=== PATIENT | female | born 1950 | race American Indian/Alaskan Native ===

== ENCOUNTER 2021-01-17 13:55 | Inpatient (IN) | payer MEDICARE ==
--- NOTE | 2021-01-17 14:02 | Emergency Department Report ---
ED General Adult HPI - General Stated complaint: CHEST PAINS/WEAKNESS Time Seen by Provider: 01/17/21 13:58 - History of Present Illness Initial comments: Patient presents by ambulance secondary to chest pain. She has been having chest pain for the last week. It is substernally located. It is when she coughs. When she does not cough, she does not have pain. She states she does not feel well but is not having pain with exertion. She has no pleuritic pain. The only time she has pain in the sternum is when she coughs. Cough has been dry. She has no fevers or chills. There is no recent travel or trauma. She has no vomiting or diarrhea. Patient has not taken anything for pain as of yet. Paramedics state that her EKG did not show anything acute. Patient came in today due to the pain. - Related Data Previous Rx's Medication Instructions Recorded Last Taken Type Benzonatate [Tessalon Perles] 100 mg PO Q8HR #30 capsule 01/17/21 Unknown Rx Allergies Allergy/AdvReac Type Severity Reaction Status Date / Time No Known Allergies Allergy Verified 01/17/21 14:35 ED Review of Systems ROS: Stated complaint: CHEST PAINS/WEAKNESS Other details as noted in HPI Comment: All other systems reviewed and negative Constitutional: denies: fever Eyes: denies: eye pain ENT: denies: throat pain Respiratory: no symptoms reported. denies: SOB with exertion Cardiovascular: as per HPI Endocrine: denies: unexplained weight loss Gastrointestinal: denies: vomiting Genitourinary: denies: dysuria Musculoskeletal: denies: back pain Skin: denies: rash Neurological: denies: headache Hematological/Lymphatic: denies: easy bruising ED Past Medical Hx - Past Medical History Hx Hypertension: Yes - Family History Family history: hypertension - Medications Home Medications: Home Medications Medication Instructions Recorded Confirmed Last Taken Type Benzonatate [Tessalon Perles] 100 mg PO Q8HR #30 capsule 01/17/21 Unknown Rx ED Physical Exam - General General appearance: alert, in no apparent distress - Head Head exam: Present: atraumatic, normocephalic, normal inspection - Eye Eye exam: Present: normal appearance, EOMI. Absent: scleral icterus - ENT ENT exam: Present: normal exam, normal orophraynx, mucous membranes moist - Neck Neck exam: Present: normal inspection, full ROM. Absent: meningismus - Respiratory Respiratory exam: Present: normal lung sounds bilaterally. Absent: respiratory distress - Cardiovascular Cardiovascular Exam: Present: regular rate, normal rhythm - GI/Abdominal GI/Abdominal exam: Present: soft. Absent: distended, tenderness, pulsatile mass - Extremities Exam Extremities exam: Present: normal capillary refill. Absent: tenderness, pedal edema - Back Exam Back exam: Absent: CVA tenderness (R), CVA tenderness (L) - Neurological Exam Neurological exam: Present: alert, oriented X3. Absent: motor sensory deficit - Psychiatric Psychiatric exam: Present: normal affect, normal mood - Skin Skin exam: Present: warm, dry ED Course Vital Signs 01/17/21 01/17/21 01/17/21 14:36 16:27 16:28 Temperature 98.3 F 98.0 F 97.6 F Pulse Rate 94 H 73 74 Respiratory 16 14 14 Rate Blood Pressure 129/63 Blood Pressure 111/56 135/73 [Left] O2 Sat by Pulse 100 100 100 Oximetry - Reevaluation(s) Reevaluation #1: 01/17/21 14:02 IV labs are ordered was seen in the hallway with EMS arrival. Reevaluation #2: 01/17/21 14:16 EKG was noted. There is no old EKG available. Reevaluation #3: 01/17/21 17:17 Labs of been reviewed. Second troponin has been ordered. IV fluids were ordered. Reevaluation #4: 01/17/21 18:43 Repeat troponin was noted and normal. At this time, patient was discharged. ED Medical Decision Making - Lab Data Result diagrams: 01/17/21 14:43 01/17/21 14:43 - EKG Data -: EKG Interpreted by Me EKG shows normal: sinus rhythm Rate: normal - EKG Data When compared to previous EKG there are: previous EKG unavailable Interpretation: other (Patient has a normal sinus rhythm with diffuse T wave inversions. There is good R wave progression. There is no ST elevation to suggest STEMI. No old EKG is available for comparison. QT corrected is prolonged at 651.) - Medical Decision Making Patient presented with chest pain with coughing. There was no radiographic evidence of pneumonia. She certainly did not have symptoms that would have been concerning for coronavirus. She was not short of breath, hypoxic, febrile, and had no productive cough. Patient did not have radiographic evidence suggestive of pneumonia or pneumothorax. She did not have a wide mediastinum or pulse deficit to suggest aortic dissection. She had a negative troponin x2. Based on that, I believe outpatient evaluation would be most appropriate. Clinically, her symptoms certainly do not sound to be cardiac in nature. Critical Care Time: No Critical care attestation.: If time is entered above; I have spent that time in minutes in the direct care of this critically ill patient, excluding procedure time. ED Disposition Clinical Impression: Substernal chest pain, Cough Disposition: HOME / SELF CARE / HOMELESS Is pt being admited?: No Does the pt Need Aspirin: No Condition: Stable Instructions: Nonspecific Chest Pain, Adult, Cough, Adult Additional Instructions: Continue home medication. Drink plenty water. Return for problems. Follow-up with your regular physician for recheck and further management. Prescriptions: Benzonatate [Tessalon Perles] 100 mg PO Q8HR #30 capsule
[2021-01-17] MEDS ORDERED: ASPIRIN 81 MG TAB CHEW PO ONE (15:00)
--- NOTE | 2021-01-17 15:17 | XRay Report ---
CHEST 2 VIEWS INDICATION / CLINICAL INFORMATION: pain. COMPARISON: None available. FINDINGS: SUPPORT DEVICES: None. HEART / MEDIASTINUM: No significant abnormality. LUNGS / PLEURA: No significant pulmonary or pleural abnormality. No pneumothorax. ADDITIONAL FINDINGS: No significant additional findings. IMPRESSION: 1. No acute findings. Signer Name: Efraín Bean MD Signed: 01/17/2021 3:12 PM Workstation Name: [id number]
[2021-01-17 15:22] LABS: Hematocrit 41.7 % (30.3-42.9); Hemoglobin 13.9 gm/dl (10.1-14.3); Mean Corpuscular HGB Conc 33 % (30-34); Mean Corpuscular Volume 104 fl (79-97); Platelet Count 166 K/mm3 (140-440); Red Blood Count 4.01 M/mm3 (3.65-5.03); Red Cell Distribution Width 12.8 % (13.2-15.2)
[2021-01-17 16:40] LABS: Alanine Aminotransferase 51 units/L (7-56); Albumin 4.3 g/dL (3.9-5); BUN/Creatinine Ratio 37; Blood Urea Nitrogen 67 mg/dL (7-17); Hemolysis Index 4
[2021-01-17] MEDS ORDERED: SODIUM CHLORIDE 0.9% 1000 ML 1,000 ML IV ONE ×2 (17:16→21:24)
--- NOTE | 2021-01-17 21:49 | Emergency Department Report ---
ED General Adult HPI - General Chief complaint: Chest Pain Stated complaint: CHEST PAINS/WEAKNESS Time Seen by Provider: 01/17/21 13:58 Source: patient Mode of arrival: Wheelchair Limitations: No Limitations - History of Present Illness Initial comments: Patient is a 70 years old female with history of hypertension. Patient presents by ambulance secondary to chest pain. She has been having chest pain for the last week. It is substernally located. It is when she coughs. When she does not cough, she does not have pain. She states she does not feel well but is not having pain with exertion. She has no pleuritic pain. The only time she has pain in the sternum is when she coughs. Cough has been dry. She has no fevers or chills. There is no recent travel or trauma. She has no vomiting or diarrhea. Patient has not taken anything for pain as of yet. Paramedics state that her EKG did not show anything acute. Patient came in today due to the pain. Patient was ready for discharge however patient blood pressure found to be 80/42. Patient is already received 1 L of normal saline. Patient still hypotensive. I ordered another liter of fluid. Lactic acid. Patient is complaining of epigastric abdominal pain described as sharp that radiates up and down. Severity scale (0 -10): 5 - Related Data Previous Rx's Medication Instructions Recorded Last Taken Type Benzonatate [Tessalon Perles] 100 mg PO Q8HR #30 capsule 01/17/21 Unknown Rx Allergies Allergy/AdvReac Type Severity Reaction Status Date / Time No Known Allergies Allergy Verified 01/17/21 14:35 ED Review of Systems ROS: Stated complaint: CHEST PAINS/WEAKNESS Other details as noted in HPI Constitutional: denies: fever Eyes: denies: eye pain ENT: denies: throat pain Respiratory: no symptoms reported. denies: SOB with exertion Cardiovascular: as per HPI Endocrine: denies: unexplained weight loss Gastrointestinal: denies: vomiting Genitourinary: denies: dysuria Musculoskeletal: denies: back pain Skin: denies: rash Neurological: denies: headache Hematological/Lymphatic: denies: easy bruising ED Past Medical Hx - Past Medical History Previous Medical History?: Yes Hx Hypertension: Yes - Surgical History Past Surgical History?: No - Social History Smoking Status: Never Smoker Substance Use Type: None - Medications Home Medications: Home Medications Medication Instructions Recorded Confirmed Last Taken Type Benzonatate [Tessalon Perles] 100 mg PO Q8HR #30 capsule 01/17/21 Unknown Rx ED Physical Exam - General Limitations: No Limitations General appearance: alert, in no apparent distress - Head Head exam: Present: atraumatic, normocephalic, normal inspection - Eye Eye exam: Present: normal appearance - ENT ENT exam: Present: mucous membranes dry - Neck Neck exam: Present: normal inspection, full ROM. Absent: tenderness, meningismus - Respiratory Respiratory exam: Present: normal lung sounds bilaterally - Cardiovascular Cardiovascular Exam: Present: regular rate, normal rhythm, normal heart sounds - GI/Abdominal GI/Abdominal exam: Present: soft, normal bowel sounds. Absent: distended, tenderness, guarding, rebound, rigid, organomegaly (Hospice was not needed), mass, bruit, pulsatile mass, hernia - Extremities Exam Extremities exam: Present: normal inspection, full ROM, normal capillary refill. Absent: calf tenderness - Back Exam Back exam: Present: normal inspection, full ROM. Absent: CVA tenderness (R), CVA tenderness (L) - Neurological Exam Neurological exam: Present: alert, oriented X3, CN II-XII intact - Psychiatric Psychiatric exam: Present: normal mood - Skin Skin exam: Present: warm, intact, normal color ED Course Vital Signs 01/17/21 01/17/21 01/17/21 14:36 16:27 16:28 Temperature 98.3 F 98.0 F 97.6 F Pulse Rate 94 H 73 74 Respiratory 16 14 14 Rate Blood Pressure 129/63 Blood Pressure 111/56 135/73 [Left] O2 Sat by Pulse 100 100 100 Oximetry 01/17/21 23:05 Temperature 98.0 F Pulse Rate 87 Respiratory 18 Rate Blood Pressure 84/57 Blood Pressure [Left] O2 Sat by Pulse 95 Oximetry ED Medical Decision Making - Lab Data Result diagrams: 01/17/21 14:43 01/17/21 14:43 - Radiology Data Radiology results: report reviewed - Medical Decision Making Patient is a 70 years old female with history of hypertension. Patient presents by ambulance secondary to chest pain. She has been having chest pain for the last week. It is substernally located. It is when she coughs. When she does not cough, she does not have pain. She states she does not feel well but is not having pain with exertion. She has no pleuritic pain. The only time she has pain in the sternum is when she coughs. Cough has been dry. She has no fevers or chills. There is no recent travel or trauma. She has no vomiting or diarrhea. Patient has not taken anything for pain as of yet. Paramedics state that her EKG did not show anything acute. Patient came in today due to the pain. Patient was ready for discharge however patient blood pressure found to be 80/42. Patient is already received 1 L of normal saline. Patient still hypotensive. I ordered another liter of fluid. Lactic acid. Patient is complaining of epigastric abdominal pain described as sharp that radiates up and down. Lactic acid is 3.6. Patient continued on normal saline. CT abdomen and pelvis showed small bowel obstruction with a transition point in the mid abdomen. Patient denied any previous surgical history. I discussed the patient with Dr. Richard, surgeon on-call. Dr. Richard advised to insert an NG tube in keep patient n.p.o. and will see the patient in the morning. I discussed the patient with Dr. Clements, he agreed to admit the patient to medical service for further management. Critical Care Time: Yes Critical care time in (mins) excluding proc time.: 30 Critical care attestation.: If time is entered above; I have spent that time in minutes in the direct care of this critically ill patient, excluding procedure time. ED Disposition Clinical Impression: Substernal chest pain, Cough, Small bowel obstruction, Bilateral pneumonia, Acute renal failure Disposition: 09 ADMITTED INPATIENT Is pt being admited?: Yes Condition: Stable
[2021-01-17 22:30] LABS: Bacteria,Urine 1+ /HPF (Negative); Bilirubin,Urine SM (Negative); Blood,Urine NEG (Negative); Color,Urine Amber (Yellow); Mucus,Urine FEW /HPF
--- NOTE | 2021-01-17 22:46 | Cat Scan Report ---
CT CHEST, ABDOMEN, AND PELVIS WITHOUT CONTRAST INDICATION / CLINICAL INFORMATION: Patient complains of abdominal pain. TECHNIQUE: Axial CT images were obtained through the chest, abdomen, and pelvis without contrast. All CT scans at this location are performed using CT dose reduction for ALARA by means of automated expo sure control. COMPARISON: None available. FINDINGS: HEART: No significant abnormality. CORONARY ARTERY CALCIFICATION: Moderate. THORACIC AORTA: Moderate atherosclerotic calcification without acute abnormality. MEDIASTINUM / JOSESITO: No significant abnormality. PLEURA: No pleural effusion. No pneumothorax. LUNGS: Mild patchy airspace disease in the central right middle lobe is nonspecific but likely infect ious/inflammatory. ADDITIONAL CHEST FINDINGS: Dilated fluid-filled esophagus. LIVER: No significant abnormality. GALLBLADDER: No significant abnormality. BILE DUCTS: No significant abnormality. PANCREAS: No significant abnormality. SPLEEN: No significant abnormality. ADRENALS: No significant abnormality. RIGHT KIDNEY / URETER: No significant abnormality. LEFT KIDNEY / URETER: No significant abnormality. STOMACH and SMALL BOWEL: The stomach is distended with fluid as is the small bowel. There are multipl e loops of dilated small bowel with likely transition point in the mid lower abdomen as seen on serie s 4 image 62. No pneumatosis or free air. COLON: No significant abnormality. APPENDIX: No significant abnormality. PERITONEUM: No free fluid. No free air. No fluid collection. LYMPH NODES: No significant adenopathy. AORTA / ARTERIES: Mild atherosclerotic calcification without acute abnormality. IVC / VEINS: No significant abnormality. URINARY BLADDER: No significant abnormality. REPRODUCTIVE ORGANS: No significant abnormality. ADDITIONAL FINDINGS: Fat-containing left inguinal hernia multilevel degenerative changes are present. No aggressive osseous lesion. SKELETAL SYSTEM: No significant abnormality. IMPRESSION: 1. Small bowel obstruction with likely transition point in the lower mid abdomen as above. No pneumat osis or free air identified. 2. Mild patchy airspace disease in the right middle lobe is nonspecific, possibly infectious/inflamma tory from aspiration-related changes from dilated fluid-filled esophagus. Signer Name: Cristobal Stokes MD Signed: 01/17/2021 10:42 PM Workstation Name: [id number]
[2021-01-17 22:48] LABS: Ictotest,Urine Negative (Negative)
[2021-01-17] MEDS ORDERED: PIPERACILLIN/TAZOBACTAM 3.375 3.375 GM/50 ML BAG IV ONE (23:08)
[2021-01-17] MEDS ORDERED: ACETAMINOPHEN 650 MG RECT SUPP PR PRN (23:12)
[2021-01-17] MEDS ORDERED: NALOXONE 0.4 MG/1 ML INJ IV PRN (23:12)
[2021-01-17] MEDS ORDERED: MORPHINE 2 MG/1 ML INJ IV PRN (23:12)
[2021-01-17] MEDS ORDERED: ONDANSETRON 4 MG/2 ML INJ IV PRN (23:12)
[2021-01-17] MEDS ORDERED: MORPHINE 4 MG/1 ML INJ IV PRN (23:12)
[2021-01-17] MEDS ORDERED: SODIUM CHLORIDE 0.45% 1000 ML 1,000 ML IV SCH (23:45)
--- NOTE | 2021-01-18 00:09 | History and Physical Report ---
History of Present Illness Date of examination: 01/17/21 Date of admission: 01/17/2021 Chief complaint: Chest pain, and abdominal pain History of present illness: 70-year-old female with history of hypertension who presents [facility] ED via ambulance with complaints of chest pain. Patient reports intermittent chest pain when coughing x1 week. Denies chest pain when not coughing. Describes her cough as dry and nonproductive. Describes her chest pain as aching and rates it 4/10. While in the ED being worked up for chest pain patient began to complain of 8/10 sharp epigastric pain with radiation to upper and lower abdomen and was noted to be hypotensive with BP of 80/42. Her abdominal pain came on sudden and was relieved with pain meds. Despite receiving 1 L bolus of normal saline, patient remained hypotensive, and was started on maintenance fluids. Imaging revealed small bowel obstruction and pneumonia. Patient will be admitted for further evaluation and treatment. Endorses: Mild dysuria Denies: shortness of breath, palpitations, fever, chills, nausea, vomiting, diarrhea, constipation, headache, hematuria, melena, hematochezia, or recent sick contacts Past History Past Medical History: hypertension, other (Mitral valve prolapse) Past Surgical History: No surgical history Social history: lives with family (Sister and niece), full code. denies: smoki ng, alcohol abuse, prescription drug abuse, IV drug use Family history: no significant family history Medications and Allergies Allergies Allergy/AdvReac Type Severity Reaction Status Date / Time No Known Allergies Allergy Verified 01/17/21 14:35 Home Medications Medication Instructions Recorded Confirmed Last Taken Type Benzonatate [Tessalon Perles] 100 mg PO Q8HR #30 capsule 01/17/21 Unknown Rx Active Meds: Active Medications Acetaminophen (Acetaminophen 650 Mg Rect Supp) 650 mg AL Q4H PRN PRN Reason: Pain MILD(1-3)/Fever >100.5/NATION Heparin Sodium (Porcine) (Heparin 5,000 Unit/1 Ml Vial) 5,000 unit SUB-Q Q12HR ORI Piperacillin Sod/Tazobactam Sod (Zosyn/Ns 4.5gm/100ml) 4.5 gm in 100 mls @ 200 mls/hr IV Q8H ORI; Protocol Sodium Chloride (Nacl 0.45% 1000 Ml) 1,000 mls @ 75 mls/hr IV DIRECT ORI Stop: 01/18/21 12:00 Morphine Sulfate (Morphine 2 Mg/1 Ml Inj) 2 mg IV Q4H PRN PRN Reason: Pain, Moderate (4-6) Morphine Sulfate (Morphine 4 Mg/1 Ml Inj) 4 mg IV Q4H PRN PRN Reason: Pain , Severe (7-10) Naloxone HCl (Naloxone 0.4 Mg/1 Ml Inj) 0.1 mg IV Q2MIN PRN PRN Reason: Res Rate </= 8 or 02 SAT < 92% Ondansetron HCl (Ondansetron 4 Mg/2 Ml Inj) 4 mg IV Q6H PRN PRN Reason: Nausea And Vomiting Pantoprazole Sodium (Pantoprazole 40 Mg Inj) 40 mg IV QDAY ORI Sodium Chloride (Sodium Chloride 0.9% 10 Ml Flush Syringe) 10 ml IV BID ORI Sodium Chloride (Sodium Chloride 0.9% 10 Ml Flush Syringe) 10 ml IV PRN PRN PRN Reason: LINE FLUSH Review of Systems All systems: negative (As noted in HPI) Exam - Physical Exam Narrative exam: Physical exam General appearance: Present: No acute distress, alert and oriented 3, older adult female - EENT Eyes: Present: PERRL, EOM intact ENT: hearing intact, normal dentition - Neck Neck: Present: supple, normal ROM - Respiratory Respiratory effort: Non-labored Respiratory: Clear throughout - Cardiovascular Heart rate: 94 (bpm) Rhythm: Sinus Heart Sounds: Present: S1 & S2. Absent: rub, click - Extremities Extremities: no ischemia, pulses intact, - Peripheral Assessment Peripheral Pulses: within normal limits - Abdominal General gastrointestinal: Distended, mild tenderness to epigastric region, normal bowel sounds - Integumentary Integumentary: Present: warm, dry - Musculoskeletal Musculoskeletal: Able to move all extremities -Neurological Neurological: CN II-XII intact - Psychiatric Psychiatric: cooperative - Constitutional Vitals: Temp Pulse Resp BP Pulse Ox 98.0 F 87 18 84/57 95 01/17/21 23:05 01/17/21 23:05 01/17/21 23:05 01/17/21 23:05 01/17/21 23:05 HEART Score - HEART Score Troponin: Troponin T 0.010 ng/mL (0.00-0.029) 01/17/21 17:50 Results - Labs CBC & Chem 7: 09/14/21 14:43 01/17/21 14:43 Labs: Laboratory Last Values WBC 7.2 K/mm3 (4.5-11.0) 01/17/21 14:43 RBC 4.01 M/mm3 (3.65-5.03) 01/17/21 14:43 Hgb 13.9 gm/dl (10.1-14.3) 01/17/21 14:43 Hct 41.7 % (30.3-42.9) 01/17/21 14:43 MCV 104 fl (79-97) H 01/17/21 14:43 MCH 35 pg (28-32) H 01/17/21 14:43 MCHC 33 % (30-34) 01/17/21 14:43 RDW 12.8 % (13.2-15.2) L 01/17/21 14:43 Plt Count 166 K/mm3 (140-440) 01/17/21 14:43 Sodium 137 mmol/L (137-145) 01/17/21 14:43 Potassium 3.8 mmol/L (3.6-5.0) 01/17/21 14:43 Chloride 95.4 mmol/L (98-107) L 01/17/21 14:43 Carbon Dioxide 26 mmol/L (22-30) 01/17/21 14:43 Anion Gap 19 mmol/L 01/17/21 14:43 BUN 67 mg/dL (7-17) H 01/17/21 14:43 Creatinine 1.8 mg/dL (0.6-1.2) H 01/17/21 14:43 Estimated GFR 28 ml/min 01/17/21 14:43 BUN/Creatinine Ratio 37 % 01/17/21 14:43 Glucose 158 mg/dL (65-100) H 01/17/21 14:43 Lactic Acid 3.60 mmol/L (0.7-2.0) H* 01/17/21 21:57 Calcium 10.0 mg/dL (8.4-10.2) 01/17/21 14:43 Total Bilirubin 0.90 mg/dL (0.1-1.2) 01/17/21 14:43 AST 35 units/L (5-40) 01/17/21 14:43 ALT 51 units/L (7-56) 01/17/21 14:43 Alkaline Phosphatase 59 units/L (35-129) 01/17/21 14:43 Troponin T 0.010 ng/mL (0.00-0.029) 01/17/21 17:50 Total Protein 8.5 g/dL (6.3-8.2) H 01/17/21 14:43 Albumin 4.3 g/dL (3.9-5) 01/17/21 14:43 Albumin/Globulin Ratio 1.0 % 01/17/21 14:43 Urine Color Shara (Yellow) 01/17/21 Unknown Urine Turbidity Cloudy (Clear) 01/17/21 Unknown Urine pH 5.0 (5.0-7.0) 01/17/21 Unknown Ur Specific Ajo 1.020 (1.003-1.030) 01/17/21 Unknown Urine Protein 30 mg/dl mg/dL (Negative) 01/17/21 Unknown Urine Glucose (UA) Neg mg/dL (Negative) 01/17/21 Unknown Urine Ketones Neg mg/dL (Negative) 01/17/21 Unknown Urine Blood Neg (Negative) 01/17/21 Unknown Urine Nitrite Neg (Negative) 01/17/21 Unknown Urine Bilirubin Sm (Negative) 01/17/21 Unknown Urine Ictotest Negative (Negative) 01/17/21 Unknown Urine Urobilinogen 2.0 mg/dL (<2.0) 01/17/21 Unknown Ur Leukocyte Esterase Mod (Negative) 01/17/21 Unknown Urine WBC (Auto) 19.0 /HPF (0.0-6.0) H 01/17/21 Unknown Urine RBC (Auto) 5.0 /HPF (0.0-6.0) 01/17/21 Unknown U Epithel Cells (Auto) 22.0 /HPF (0-13.0) H 01/17/21 Unknown Urine Bacteria (Auto) 1+ /HPF (Negative) 01/17/21 Unknown Urine Mucus Few /HPF 01/17/21 Unknown Urine Yeast (Budding) Few /HPF 01/17/21 Unknown - Imaging and Cardiology Imaging and Cardiology: CXR: FINDINGS: SUPPORT DEVICES: None. HEART / MEDIASTINUM: No significant abnormality. LUNGS / PLEURA: No significant pulmonary or pleural abnormality. No pneumothorax. ADDITIONAL FINDINGS: No significant additional findings. IMPRESSION: 1. No acute findings. CT Chest & CT Abd/Pelvis : FINDINGS: HEART: No significant abnormality. CORONARY ARTERY CALCIFICATION: Moderate. THORACIC AORTA: Moderate atherosclerotic calcification without acute abnormality. MEDIASTINUM / JOSESITO: No significant abnormality. PLEURA: No pleural effusion. No pneumothorax. LUNGS: Mild patchy airspace disease in the central right middle lobe is nonspecific but likely infectious/inflammatory. ADDITIONAL CHEST FINDINGS: Dilated fluid-filled esophagus. LIVER: No significant abnormality. GALLBLADDER: No significant abnormality. BILE DUCTS: No significant abnormality. PANCREAS: No significant abnormality. SPLEEN: No significant abnormality. ADRENALS: No significant abnormality. RIGHT KIDNEY / URETER: No significant abnormality. LEFT KIDNEY / URETER: No significant abnormality. STOMACH and SMALL BOWEL: The stomach is distended with fluid as is the small bow el. There are multiple loops of dilated small bowel with likely transition point in the mid lower abdomen as seen on series 4 image 62. No pneumatosis or free air. COLON: No significant abnormality. APPENDIX: No significant abnormality. PERITONEUM: No free fluid. No free air. No fluid collection. LYMPH NODES: No significant adenopathy. AORTA / ARTERIES: Mild atherosclerotic calcification without acute abnormality. IVC / VEINS: No significant abnormality. URINARY BLADDER: No significant abnormality. REPRODUCTIVE ORGANS: No significant abnormality. ADDITIONAL FINDINGS: Fat-containing left inguinal hernia multilevel degenerative changes are present. No aggressive osseous lesion. SKELETAL SYSTEM: No significant abnormality. IMPRESSION: 1. Small bowel obstruction with likely transition point in the lower mid abdomen as above. No pneumatosis or free air identified. 2. Mild patchy airspace disease in the right middle lobe is nonspecific, p ossibly infectious/inflammatory from aspiration-related changes from dilated fluid-filled esophagus. Assessment and Plan Assessment and plan: Small bowel obstruction -CT abdomen pelvis revealed small bowel obstruction with likely transition point in the lower mid abdomen -N.p.o. -NG tube to LIS -On IV ABX -Dr. Richard (general surgery) consulted with plans to see in a.m. Acute abdominal pain -Complains of sharp 8/10 epigastric pain -Likely due to #1 -Pain management -Supportive care Atypical chest pain -Complains of substernal chest pain when coughing -EKG negative for acute ischemic abnormalities -Troponin negative x2, will trend -?? GERD -?? d/t PNA -On continuous remote telemetry monitoring CHRIST -BUN/Cr on 67/1.8 on admission -Hydrate with IVF -Avoid nephrotoxic agents -Renal dose all meds -Monitor renal function Urinary tract infection -UA positive for UTI -urine wbc 19, moderate leukocyte -Urine culture pending -on IV Abx Pneumonia -CXR negative -CT chest shows nonspecific Mild patchy airspace disease in the right middle lobe -Blood Cultures pending -Start on IV Abx Lactic acidosis -Lactic acid of 3.5 on admission -on IV Abx -on IVF -Continue to monitor Hypotension - History of hypertension -Responsive to fluid resuscitation -We will hold off on antihypertensive for now, resume when appropriate -Monitor BP DVT and GI PPX - On protonix and heparin Advance Directives: No VTE prophylaxis?: Chemical, Mechanical Plan of care discussed with patient/family: Yes
[2021-01-18] MEDS: PIPERACIL/TAZOBACTA 4.5/NS 100 4.5 GM/100 ML VIAL IV SCH ×3 (02:00→22:28)
--- NOTE | 2021-01-18 09:25 | Consultation ---
History of Present Illness Consult date: 01/18/21 Consult reason: chest pain History of present illness: This is a 70-year old women with a history of hypertension. No cardiac history. In 2018, a lexiscan thallium test showed a normal perfusion scan. Normal left ventricular systolic function, ejection fraction 55-60% by echocardiogram. She was brought to this hospital with complaints of chest pain. Chest pain is described as intermittent for several days associated with cough. Denies short ness of breath and denies palpitations. Initial labs showed acute renal failure, creatinine of 1.8. Serial troponin measurements were negative. COVID serology test result is pending. Chest x-ray done was negative, however, a chest CT scan showed evidence of small bowel obstruction. 12 lead ECG is sinus rhythm, no acute ischemic changes. Past History Past Medical History: hypertension Past Surgical History: No surgical history Social history: lives with family (Sister and niece), full code. denies: smok ing, alcohol abuse, prescription drug abuse, IV drug use Family history: no significant family history Medications and Allergies Allergies Allergy/AdvReac Type Severity Reaction Status Date / Time No Known Allergies Allergy Verified 01/17/21 14:35 Home Medications Medication Instructions Recorded Confirmed Last Taken Type Benzonatate [Tessalon Perles] 100 mg PO Q8HR #30 capsule 01/17/21 Unknown Rx Active Meds: Active Medications Acetaminophen (Acetaminophen 650 Mg Rect Supp) 650 mg PA Q4H PRN PRN Reason: Pain MILD(1-3)/Fever >100.5/NATION Heparin Sodium (Porcine) (Heparin 5,000 Unit/1 Ml Vial) 5,000 unit SUB-Q Q12HR ORI Piperacillin Sod/Tazobactam Sod (Zosyn/Ns 4.5gm/100ml) 4.5 gm in 100 mls @ 200 mls/hr IV Q8H ORI; Protocol Last Infusion: 01/18/21 07:37 Dose: Infused Documented by: Sodium Chloride (Nacl 0.45% 1000 Ml) 1,000 mls @ 75 mls/hr IV DIRECT ORI Stop: 01/18/21 12:00 Morphine Sulfate (Morphine 2 Mg/1 Ml Inj) 2 mg IV Q4H PRN PRN Reason: Pain, Moderate (4-6) Morphine Sulfate (Morphine 4 Mg/1 Ml Inj) 4 mg IV Q4H PRN PRN Reason: Pain , Severe (7-10) Naloxone HCl (Naloxone 0.4 Mg/1 Ml Inj) 0.1 mg IV Q2MIN PRN PRN Reason: Res Rate </= 8 or 02 SAT < 92% Ondansetron HCl (Ondansetron 4 Mg/2 Ml Inj) 4 mg IV Q6H PRN PRN Reason: Nausea And Vomiting Pantoprazole Sodium (Pantoprazole 40 Mg Inj) 40 mg IV QDAY ORI Sodium Chloride (Sodium Chloride 0.9% 10 Ml Flush Syringe) 10 ml IV BID ORI Sodium Chloride (Sodium Chloride 0.9% 10 Ml Flush Syringe) 10 ml IV PRN PRN PRN Reason: LINE FLUSH Review of Systems Cardiovascular: chest pain, no palpitations, no edema, no lightheadedness, no shortness of breath Respiratory: cough Gastrointestinal: nausea Physical Examination Vital Signs Temp Pulse Resp BP Pulse Ox 98.3 F 94 H 16 111/56 100 01/17/21 14:36 01/17/21 14:36 01/17/21 14:36 01/17/21 14:36 01/17/21 14:36 Narrative exam: Deferred due to isolation protocol. General appearance: no acute distress Cardiac: Positive: Reg Rate and Rhythm Results 01/17/21 14:43 01/17/21 14:43 Cardiac Enzymes 01/17/21 Range/Units 14:43 AST 35 (5-40) units/L CBC 01/17/21 Range/Units 14:43 WBC 7.2 (4.5-11.0) K/mm3 RBC 4.01 (3.65-5.03) M/mm3 Hgb 13.9 (10.1-14.3) gm/dl Hct 41.7 (30.3-42.9) % Plt Count 166 (140-440) K/mm3 Comprehensive Metabolic Panel 01/17/21 Range/Units 14:43 Sodium 137 (137-145) mmol/L Potassium 3.8 (3.6-5.0) mmol/L Chloride 95.4 L (98-107) mmol/L Carbon Dioxide 26 (22-30) mmol/L BUN 67 H (7-17) mg/dL Creatinine 1.8 H (0.6-1.2) mg/dL Glucose 158 H (65-100) mg/dL Calcium 10.0 (8.4-10.2) mg/dL AST 35 (5-40) units/L ALT 51 (7-56) units/L Alkaline Phosphatase 59 (35-129) units/L Total Protein 8.5 H (6.3-8.2) g/dL Albumin 4.3 (3.9-5) g/dL Assessment and Plan Atypical chest pain associated with cough COVID serology result is pending 2018 Lexiscan: normal perfusion 2018 Echo: normal LVEF 55-60% Small bowel obstruction Hypertension
--- NOTE | 2021-01-18 09:54 | Consultation ---
History of Present Illness Consult date: 01/18/21 Reason for consult: abdominal pain - History of present illness History of present illness: 70 year old female presented to ER yesterday with chest pain and abdominal pain. She says the abdominal pain started while in the ED with nausea and no vomiting. She says the pain is about 6/10 and cannot recall the last time she had a bowel movement or passed flatus. She had a CT scan that showed dilated stomach and small bowel with a transition point in the mid pelvis c/w SBO. She had an NGT placed in ED but does not says she feels much better. Past History Past Medical History: hypertension Past Surgical History: Social history: lives with family (Sister and niece), full code. denies: smoking, alcohol abuse, prescription drug abuse, IV drug use Family history: no significant family history Medications and Allergies Allergies Allergy/AdvReac Type Severity Reaction Status Date / Time No Known Allergies Allergy Verified 01/17/21 14:35 Home Medications Medication Instructions Recorded Confirmed Last Taken Type Benzonatate [Tessalon Perles] 100 mg PO Q8HR #30 capsule 01/17/21 Unknown Rx Active Meds: Active Medications Acetaminophen (Acetaminophen 650 Mg Rect Supp) 650 mg MT Q4H PRN PRN Reason: Pain MILD(1-3)/Fever >100.5/NATION Heparin Sodium (Porcine) (Heparin 5,000 Unit/1 Ml Vial) 5,000 unit SUB-Q Q12HR ORI Piperacillin Sod/Tazobactam Sod (Zosyn/Ns 4.5gm/100ml) 4.5 gm in 100 mls @ 200 mls/hr IV Q8H ORI; Protocol Last Infusion: 01/18/21 07:37 Dose: Infused Documented by: Sodium Chloride (Nacl 0.45% 1000 Ml) 1,000 mls @ 75 mls/hr IV DIRECT ORI Stop: 01/18/21 12:00 Morphine Sulfate (Morphine 2 Mg/1 Ml Inj) 2 mg IV Q4H PRN PRN Reason: Pain, Moderate (4-6) Morphine Sulfate (Morphine 4 Mg/1 Ml Inj) 4 mg IV Q4H PRN PRN Reason: Pain , Severe (7-10) Naloxone HCl (Naloxone 0.4 Mg/1 Ml Inj) 0.1 mg IV Q2MIN PRN PRN Reason: Res Rate </= 8 or 02 SAT < 92% Ondansetron HCl (Ondansetron 4 Mg/2 Ml Inj) 4 mg IV Q6H PRN PRN Reason: Nausea And Vomiting Pantoprazole Sodium (Pantoprazole 40 Mg Inj) 40 mg IV QDAY ORI Sodium Chloride (Sodium Chloride 0.9% 10 Ml Flush Syringe) 10 ml IV BID ORI Sodium Chloride (Sodium Chloride 0.9% 10 Ml Flush Syringe) 10 ml IV PRN PRN PRN Reason: LINE FLUSH Review of Systems All systems: negative - Constitutional poor appetite - Cardiovascular no chest pain - Respiratory no cough - Gastrointestinal abdominal pain, nausea Exam Vital Signs Temp Pulse Resp BP Pulse Ox 98.3 F 94 H 16 111/56 100 01/17/21 14:36 01/17/21 14:36 01/17/21 14:36 01/17/21 14:36 01/17/21 14:36 - General physical appearance Positive: well developed, no distress, moderate pain - Respiratory Positive: normal expansion, normal respiratory effort - Cardiovascular Heart Sounds: Present: S1 & S2 - Extremities Extremities: no ischemia - Abdomen Abdomen: Present: soft, distended, other (generalized tenderness to deep palpation, NGT with dark yellow drainage). Absent: guarding, rigid - Neurologic Neurologic: alert and oriented to time, place and person, CN II-XII intact - Psychiatric Psychiatric: appropriate mood/affect Results - Labs 01/17/21 14:43 01/17/21 14:43 Abnormal lab results 01/17/21 01/17/21 01/17/21 Range/Units 14:43 14:43 21:57 MCV 104 H (79-97) fl MCH 35 H (28-32) pg RDW 12.8 L (13.2-15.2) % Chloride 95.4 L (98-107) mmol/L BUN 67 H (7-17) mg/dL Creatinine 1.8 H (0.6-1.2) mg/dL Glucose 158 H (65-100) mg/dL Lactic Acid 3.60 H* (0.7-2.0) mmol/L Total Protein 8.5 H (6.3-8.2) g/dL Urine WBC (Auto) (0.0-6.0) /HPF U Epithel Cells (Auto) (0-13.0) /HPF 01/17/21 01/17/21 Range/Units 23:47 Unknown MCV (79-97) fl MCH (28-32) pg RDW (13.2-15.2) % Chloride (98-107) mmol/L BUN (7-17) mg/dL Creatinine (0.6-1.2) mg/dL Glucose (65-100) mg/dL Lactic Acid 2.40 H* (0.7-2.0) mmol/L Total Protein (6.3-8.2) g/dL Urine WBC (Auto) 19.0 H (0.0-6.0) /HPF U Epithel Cells (Auto) 22.0 H (0-13.0) /HPF Diabetes panel 01/17/21 Range/Units 14:43 Sodium 137 (137-145) mmol/L Potassium 3.8 (3.6-5.0) mmol/L Chloride 95.4 L (98-107) mmol/L Carbon Dioxide 26 (22-30) mmol/L BUN 67 H (7-17) mg/dL Creatinine 1.8 H (0.6-1.2) mg/dL Glucose 158 H (65-100) mg/dL Calcium 10.0 (8.4-10.2) mg/dL AST 35 (5-40) units/L ALT 51 (7-56) units/L Alkaline Phosphatase 59 (35-129) units/L Total Protein 8.5 H (6.3-8.2) g/dL Albumin 4.3 (3.9-5) g/dL Calcium panel 01/17/21 Range/Units 14:43 Calcium 10.0 (8.4-10.2) mg/dL Albumin 4.3 (3.9-5) g/dL Pituitary panel 01/17/21 Range/Units 14:43 Sodium 137 (137-145) mmol/L Potassium 3.8 (3.6-5.0) mmol/L Chloride 95.4 L (98-107) mmol/L Carbon Dioxide 26 (22-30) mmol/L BUN 67 H (7-17) mg/dL Creatinine 1.8 H (0.6-1.2) mg/dL Glucose 158 H (65-100) mg/dL Calcium 10.0 (8.4-10.2) mg/dL Adrenal panel 01/17/21 Range/Units 14:43 Sodium 137 (137-145) mmol/L Potassium 3.8 (3.6-5.0) mmol/L Chloride 95.4 L (98-107) mmol/L Carbon Dioxide 26 (22-30) mmol/L BUN 67 H (7-17) mg/dL Creatinine 1.8 H (0.6-1.2) mg/dL Glucose 158 H (65-100) mg/dL Calcium 10.0 (8.4-10.2) mg/dL Total Bilirubin 0.90 (0.1-1.2) mg/dL AST 35 (5-40) units/L ALT 51 (7-56) units/L Alkaline Phosphatase 59 (35-129) units/L Total Protein 8.5 H (6.3-8.2) g/dL Albumin 4.3 (3.9-5) g/dL - Imaging CT scan - abdomen: report reviewed, image reviewed CT scan - pelvis: report reviewed, image reviewed Assessment and Plan 70 year old female with small bowel obstruction. Most likely etiology scar tissue from . Patient is afebrile and stable. Recommend n.p.o., IV resuscitation, and NG tube decompression. If no improvement and continued high NG tube output patient may benefit from diagnostic laparoscopy. Will reevaluate patient this afternoon with possible surgery plan for today.
[2021-01-18] MEDS: HEPARIN 5,000 UNIT/1 ML VIAL SUB-Q SCH ×2 (10:42→22:28)
[2021-01-18] MEDS: PANTOPRAZOLE 40 MG INJ IV SCH (10:42)
--- NOTE | 2021-01-18 12:15 | Progress Note ---
Assessment and Plan Assessment and plan: 70-year-old female with history of hypertension who presents [facility] ED via ambulance with complaints of chest pain. Patient reports intermittent chest pain when coughing x1 week. Denies chest pain when not coughing. Describes her cough as dry and nonproductive. Describes her chest pain as aching and rates it 4/10. While in the ED being worked up for chest pain patient began to complain of 8/10 sharp epigastric pain with radiation to upper and lower abdomen and was noted to be hypotensive with BP of 80/42. Her abdominal pain came on sudden and was relieved with pain meds. Despite receiving 1 L bolus of normal saline, patient remained hypotensive, and was started on maintenance fluids. Imaging revealed small bowel obstruction and pneumonia. Patient will be admitted for further evaluation and treatment. CT abdomen and pelvis 1. Small bowel obstruction with likely transition point in the lower mid abdomen as above. No pneumatosis or free air identified. 2. Mild patchy airspace disease in the right middle lobe is nonspecific, possibly infectious/inflammatory from aspiration-related changes from dilated fluid-filled esophagus. Small bowel obstruction -CT abdomen pelvis revealed small bowel obstruction with likely transition point in the lower mid abdomen -N.p.o. -NG tube to LIS -On IV ABX -Dr. Richard (general surgery) consulted with plans to see in a.m. Acute abdominal pain -Complains of sharp 8/10 epigastric pain -Likely due to #1 -Pain management -Supportive care Atypical chest pain -Complains of substernal chest pain when coughing -EKG negative for acute ischemic abnormalities -Troponin negative x2, will trend -?? GERD -?? d/t PNA -On continuous remote telemetry monitoring CHRIST -BUN/Cr on 67/1.8 on admission -Hydrate with IVF -Avoid nephrotoxic agents -Renal dose all meds -Monitor renal function Urinary tract infection -UA positive for UTI -urine wbc 19, moderate leukocyte -Urine culture pending -on IV Abx Pneumonia -CXR negative -CT chest shows nonspecific Mild patchy airspace disease in the right middle lobe -Blood Cultures pending -Start on IV Abx Lactic acidosis -Lactic acid of 3.5 on admission -on IV Abx -on IVF -Continue to monitor Hypotension - History of hypertension -Responsive to fluid resuscitation -We will hold off on antihypertensive for now, resume when appropriate -Monitor BP DVT and GI PPX - On protonix and heparin Advance Directives: No VTE prophylaxis?: Chemical, Mechanical Plan of care discussed with patient/family: Yes 01/18: Continue supportive care. Surgery evaluating, continue NGT, Will have Cardiology evaluate as patient had chest pain prior to presentation. She reports that she has a hx of Regular BM, although that she has experienced constipation about 3 months earlier. History Interval history: Patient seen and examined, resting comfortable, NGT is in place. Reports improvement in abdominal pain. Hospitalist Physical - Physical exam Narrative exam: VITAL SIGNS: Reviewed. GENERAL: The patient appears normally developed, NGT, Vital signs as documented. HEAD: No signs of head trauma. EYES: Pupils are equal. Extraocular motions intact. EARS: Hearing grossly intact. MOUTH: Oropharynx is normal. NECK: No adenopathy, no JVD. CHEST: Chest with clear breath sounds bilaterally. No wheezes, rales, or rhonchi. CARDIAC: Regular rate and rhythm. S1 and S2, without murmurs, gallops, or rubs. VASCULAR: No Edema. Peripheral pulses normal and equal in all extremities. ABDOMEN: Soft, non tender and non distended. No rebound or guarding, and no masses palpated. Bowel Sounds normal. MUSCULOSKELETAL: Good range of motion of all major joints. Extremities without clubbing, cyanosis or edema. NEUROLOGIC EXAM: Alert and oriented x 3 No focal sensory or strength deficits. Speech normal. Follows commands. PSYCHIATRIC: Mood normal. SKIN: detail exam as documented in skin assessment - Constitutional Vitals: Temp Pulse Resp BP Pulse Ox 98.0 F 87 18 84/57 96 01/17/21 23:05 01/17/21 23:05 01/17/21 23:05 01/17/21 23:05 01/18/21 01:37 General appearance: Present: no acute distress HEART Score - HEART Score Troponin: Troponin T 0.014 ng/mL (0.00-0.029) 01/18/21 06:27 Results - Labs CBC & Chem 7: 01/17/21 14:43 01/17/21 14:43 Labs: Laboratory Last Values WBC 7.2 K/mm3 (4.5-11.0) 01/17/21 14:43 RBC 4.01 M/mm3 (3.65-5.03) 01/17/21 14:43 Hgb 13.9 gm/dl (10.1-14.3) 01/17/21 14:43 Hct 41.7 % (30.3-42.9) 01/17/21 14:43 MCV 104 fl (79-97) H 01/17/21 14:43 MCH 35 pg (28-32) H 01/17/21 14:43 MCHC 33 % (30-34) 01/17/21 14:43 RDW 12.8 % (13.2-15.2) L 01/17/21 14:43 Plt Count 166 K/mm3 (140-440) 01/17/21 14:43 Sodium 137 mmol/L (137-145) 01/17/21 14:43 Potassium 3.8 mmol/L (3.6-5.0) 01/17/21 14:43 Chloride 95.4 mmol/L (98-107) L 01/17/21 14:43 Carbon Dioxide 26 mmol/L (22-30) 01/17/21 14:43 Anion Gap 19 mmol/L 01/17/21 14:43 BUN 67 mg/dL (7-17) H 01/17/21 14:43 Creatinine 1.8 mg/dL (0.6-1.2) H 01/17/21 14:43 Estimated GFR 28 ml/min 01/17/21 14:43 BUN/Creatinine Ratio 37 % 01/17/21 14:43 Glucose 158 mg/dL (65-100) H 01/17/21 14:43 Lactic Acid 1.80 mmol/L (0.7-2.0) 01/18/21 06:27 Calcium 10.0 mg/dL (8.4-10.2) 01/17/21 14:43 Total Bilirubin 0.90 mg/dL (0.1-1.2) 01/17/21 14:43 AST 35 units/L (5-40) 01/17/21 14:43 ALT 51 units/L (7-56) 01/17/21 14:43 Alkaline Phosphatase 59 units/L (35-129) 01/17/21 14:43 Troponin T 0.014 ng/mL (0.00-0.029) 01/18/21 06:27 Total Protein 8.5 g/dL (6.3-8.2) H 01/17/21 14:43 Albumin 4.3 g/dL (3.9-5) 01/17/21 14:43 Albumin/Globulin Ratio 1.0 % 01/17/21 14:43 Urine Color Shara (Yellow) 01/17/21 Unknown Urine Turbidity Cloudy (Clear) 01/17/21 Unknown Urine pH 5.0 (5.0-7.0) 01/17/21 Unknown Ur Specific Eaton 1.020 (1.003-1.030) 01/17/21 Unknown Urine Protein 30 mg/dl mg/dL (Negative) 01/17/21 Unknown Urine Glucose (UA) Neg mg/dL (Negative) 01/17/21 Unknown Urine Ketones Neg mg/dL (Negative) 01/17/21 Unknown Urine Blood Neg (Negative) 01/17/21 Unknown Urine Nitrite Neg (Negative) 01/17/21 Unknown Urine Bilirubin Sm (Negative) 01/17/21 Unknown Urine Ictotest Negative (Negative) 01/17/21 Unknown Urine Urobilinogen 2.0 mg/dL (<2.0) 01/17/21 Unknown Ur Leukocyte Esterase Mod (Negative) 01/17/21 Unknown Urine WBC (Auto) 19.0 /HPF (0.0-6.0) H 01/17/21 Unknown Urine RBC (Auto) 5.0 /HPF (0.0-6.0) 01/17/21 Unknown U Epithel Cells (Auto) 22.0 /HPF (0-13.0) H 01/17/21 Unknown Urine Bacteria (Auto) 1+ /HPF (Negative) 01/17/21 Unknown Urine Mucus Few /HPF 01/17/21 Unknown Urine Yeast (Budding) Few /HPF 01/17/21 Unknown Microbiology: Microbiology 01/17/21 23:47 Peripheral/Venous Blood Culture - Preliminary Culture in Progress 01/18/21 00:34 Peripheral/Venous Blood Culture - Preliminary Culture in Progress Morrison/IV: Voiding Method Toilet Active Medications - Current Medications Current Medications: Generic Name Dose Route Start Last Admin Trade Name Freq PRN Reason Stop Dose Admin Acetaminophen 650 mg 01/17/21 23:12 Acetaminophen 650 Mg Rect Supp CO Q4H PRN Pain MILD(1-3)/Fever >100.5/NATION Heparin Sodium (Porcine) 5,000 unit 01/18/21 10:00 01/18/21 10:42 Heparin 5,000 Unit/1 Ml Vial SUB-Q 5,000 unit Q12HR ORI Administration Piperacillin Sod/Tazobactam Sod 4.5 gm in 100 mls @ 200 mls/hr 01/17/21 23:45 01/18/21 10:45 Zosyn/Ns 4.5gm/100ml IV 200 mls/hr Q8H ORI Administration Protocol Morphine Sulfate 2 mg 01/17/21 23:12 Morphine 2 Mg/1 Ml Inj IV Q4H PRN Pain, Moderate (4-6) Morphine Sulfate 4 mg 01/17/21 23:12 Morphine 4 Mg/1 Ml Inj IV Q4H PRN Pain , Severe (7-10) Naloxone HCl 0.1 mg 01/17/21 23:12 Naloxone 0.4 Mg/1 Ml Inj IV Q2MIN PRN Res Rate </= 8 or 02 SAT < 92% Ondansetron HCl 4 mg 01/17/21 23:12 Ondansetron 4 Mg/2 Ml Inj IV Q6H PRN Nausea And Vomiting Pantoprazole Sodium 40 mg 01/18/21 10:00 01/18/21 10:42 Pantoprazole 40 Mg Inj IV 40 mg QDAY ORI Administration Sodium Chloride 10 ml 01/18/21 10:00 01/18/21 10:42 Sodium Chloride 0.9% 10 Ml Flush Syringe IV 10 ml BID ORI Administration Sodium Chloride 10 ml 01/17/21 23:12 Sodium Chloride 0.9% 10 Ml Flush Syringe IV PRN PRN LINE FLUSH
[2021-01-18] MEDS: D5W/0.9% NACL 1,000 ML IV SCH (17:57)
[2021-01-19 06:29] LABS: Hematocrit 31.4 % (30.3-42.9); Hemoglobin 10.6 gm/dl (10.1-14.3); Mean Corpuscular HGB Conc 34 % (30-34); Mean Corpuscular Volume 103 fl (79-97); Platelet Count 158 K/mm3 (140-440); Red Blood Count 3.05 M/mm3 (3.65-5.03); Red Cell Distribution Width 12.6 % (13.2-15.2)
[2021-01-19] MEDS: PIPERACIL/TAZOBACTA 4.5/NS 100 4.5 GM/100 ML VIAL IV SCH ×4 (06:51→21:33)
[2021-01-19 07:03] LABS: Calcium 8.8 mg/dL (8.4-10.2)
[2021-01-19] MEDS: HEPARIN 5,000 UNIT/1 ML VIAL SUB-Q SCH ×2 (09:42→21:34)
[2021-01-19] MEDS: PANTOPRAZOLE 40 MG INJ IV SCH (09:42)
[2021-01-19] MEDS: D5W/0.9% NACL 1,000 ML IV SCH (09:43)
--- NOTE | 2021-01-19 12:50 | Progress Note ---
Assessment and Plan - Patient Problems (1) Abdominal pain Current Visit: Yes Status: Acute Plan to address problem: Patient presented with epigastric pain, vomiting and constipation, symptoms of small bowel obstruction. Surgical evaluation and management in progress. (2) Hypertension Current Visit: Yes Status: Acute Plan to address problem: Optimal therapy for hypertension. Baseline ECG shows left ventricle hypertrophy, changes consistent with chronic hypertension. Subjective Date of service: 01/19/21 Interval history: Patient admitted with symptoms of small bowel obstruction. No cardiac complaints. Objective Vital Signs Temp Pulse Resp BP Pulse Ox 01/19/21 12:00 98.0 F 65 18 110/44 99 01/19/21 11:10 95 01/19/21 06:04 98.9 F 79 20 103/41 94 01/18/21 22:35 96 01/18/21 22:25 90 18 119/56 96 01/18/21 22:03 98.6 F 94 H 18 99/48 92 01/18/21 16:07 97.6 F 83 18 126/45 100 01/18/21 13:36 84 - Physical Examination General: No Apparent Distress, Other (NG tube to suction) HEENT: Positive: PERRL Neck: Positive: neck supple Cardiac: Positive: Reg Rate and Rhythm Lungs: Positive: Decreased Breath Sounds Neuro: Positive: Grossly Intact Abdomen: Positive: Tender Skin: Positive: Clear Extremities: Absent: edema - Labs and Meds CBC 01/19/21 Range/Units 05:42 WBC 6.5 (4.5-11.0) K/mm3 RBC 3.05 L (3.65-5.03) M/mm3 Hgb 10.6 D (10.1-14.3) gm/dl Hct 31.4 D (30.3-42.9) % Plt Count 158 (140-440) K/mm3 Comprehensive Metabolic Panel 01/19/21 Range/Units 05:42 Sodium 146 H D (137-145) mmol/L Potassium 3.2 L (3.6-5.0) mmol/L Chloride 110.9 H (98-107) mmol/L Carbon Dioxide 23 (22-30) mmol/L BUN 54 H (7-17) mg/dL Creatinine 1.2 (0.6-1.2) mg/dL Glucose 119 H (65-100) mg/dL Calcium 8.8 (8.4-10.2) mg/dL
--- NOTE | 2021-01-19 14:10 | Progress Note ---
Assessment and Plan Assessment and plan: 70-year-old female with history of hypertension who presents [facility] ED via ambulance with complaints of chest pain. Patient reports intermittent chest pain when coughing x1 week. Denies chest pain when not coughing. Describes her cough as dry and nonproductive. Describes her chest pain as aching and rates it 4/10. While in the ED being worked up for chest pain patient began to complain of 8/10 sharp epigastric pain with radiation to upper and lower abdomen and was noted to be hypotensive with BP of 80/42. Her abdominal pain came on sudden and was relieved with pain meds. Despite receiving 1 L bolus of normal saline, patient remained hypotensive, and was started on maintenance fluids. Imaging revealed small bowel obstruction and pneumonia. Patient will be admitted for further evaluation and treatment. CT abdomen and pelvis 1. Small bowel obstruction with likely transition point in the lower mid abdomen as above. No pneumatosis or free air identified. 2. Mild patchy airspace disease in the right middle lobe is nonspecific, possibly infectious/inflammatory from aspiration-related changes from dilated fluid-filled esophagus. Small bowel obstruction -CT abdomen pelvis revealed small bowel obstruction with likely transition point in the lower mid abdomen -N.p.o. -NG tube to LIS -On IV ABX -Dr. Richard (general surgery) consulted with plans to see in a.m. Acute abdominal pain -Complains of sharp 8/10 epigastric pain -Likely due to #1 -Pain management -Supportive care Atypical chest pain -Complains of substernal chest pain when coughing -EKG negative for acute ischemic abnormalities -Troponin negative x2, will trend -?? GERD -?? d/t PNA -On continuous remote telemetry monitoring CHRIST -BUN/Cr on 67/1.8 on admission -Hydrate with IVF -Avoid nephrotoxic agents -Renal dose all meds -Monitor renal function Urinary tract infection -UA positive for UTI -urine wbc 19, moderate leukocyte -Urine culture pending -on IV Abx Pneumonia -CXR negative -CT chest shows nonspecific Mild patchy airspace disease in the right middle lobe -Blood Cultures pending -Start on IV Abx Lactic acidosis -Lactic acid of 3.5 on admission -on IV Abx -on IVF -Continue to monitor Hypotension - History of hypertension -Responsive to fluid resuscitation -We will hold off on antihypertensive for now, resume when appropriate -Monitor BP DVT and GI PPX - On protonix and heparin Advance Directives: No VTE prophylaxis?: Chemical, Mechanical Plan of care discussed with patient/family: Yes 01/18: Continue supportive care. Surgery evaluating, continue NGT, Will have Cardiology evaluate as patient had chest pain prior to presentation. She reports that she has a hx of Regular BM, although that she has experienced constipation about 3 months earlier. 01/19: Tony refused surgery yesterday, stated also no prior hx of surgery. Will continue conservative care, encourage ambulation intermittent today, Will obtain KUB tomorrow for further evaluation. CALLED AND UPDATED FAMILY GILBERTO History Interval history: Patient seen and examined, resting comfortable, NGT is in place. Reports improvement in abdominal pain. No new complaints Hospitalist Physical - Physical exam Narrative exam: VITAL SIGNS: Reviewed. GENERAL: The patient appears normally developed, NGT, Vital signs as documented. HEAD: No signs of head trauma. EYES: Pupils are equal. Extraocular motions intact. EARS: Hearing grossly intact. MOUTH: Oropharynx is normal. NECK: No adenopathy, no JVD. CHEST: Chest with clear breath sounds bilaterally. No wheezes, rales, or rhonchi. CARDIAC: Regular rate and rhythm. S1 and S2, without murmurs, gallops, or rubs. VASCULAR: No Edema. Peripheral pulses normal and equal in all extremities. ABDOMEN: Soft, non tender and non distended. No rebound or guarding, and no masses palpated. Bowel Sounds normal. MUSCULOSKELETAL: Good range of motion of all major joints. Extremities without clubbing, cyanosis or edema. NEUROLOGIC EXAM: Alert and oriented x 3 No focal sensory or strength deficits. Speech normal. Follows commands. PSYCHIATRIC: Mood normal. SKIN: detail exam as documented in skin assessment - Constitutional Vitals: Temp Pulse Resp BP Pulse Ox 98.0 F 65 18 110/44 99 01/19/21 12:00 01/19/21 12:00 01/19/21 12:00 01/19/21 12:00 01/19/21 12:00 General appearance: Present: no acute distress HEART Score - HEART Score Troponin: Troponin T 0.014 ng/mL (0.00-0.029) 01/18/21 06:27 Results - Labs CBC & Chem 7: 01/19/21 05:42 01/19/21 05:42 Labs: Laboratory Last Values WBC 6.5 K/mm3 (4.5-11.0) 01/19/21 05:42 RBC 3.05 M/mm3 (3.65-5.03) L 01/19/21 05:42 Hgb 10.6 gm/dl (10.1-14.3) D 01/19/21 05:42 Hct 31.4 % (30.3-42.9) D 01/19/21 05:42 MCV 103 fl (79-97) H 01/19/21 05:42 MCH 35 pg (28-32) H 01/19/21 05:42 MCHC 34 % (30-34) 01/19/21 05:42 RDW 12.6 % (13.2-15.2) L 01/19/21 05:42 Plt Count 158 K/mm3 (140-440) 01/19/21 05:42 Sodium 146 mmol/L (137-145) H D 01/19/21 05:42 Potassium 3.2 mmol/L (3.6-5.0) L 01/19/21 05:42 Chloride 110.9 mmol/L (98-107) H 01/19/21 05:42 Carbon Dioxide 23 mmol/L (22-30) 01/19/21 05:42 Anion Gap 15 mmol/L 01/19/21 05:42 BUN 54 mg/dL (7-17) H 01/19/21 05:42 Creatinine 1.2 mg/dL (0.6-1.2) 01/19/21 05:42 Estimated GFR 54 ml/min 01/19/21 05:42 BUN/Creatinine Ratio 45 % 01/19/21 05:42 Glucose 119 mg/dL (65-100) H 01/19/21 05:42 Lactic Acid 1.80 mmol/L (0.7-2.0) 01/18/21 06:27 Calcium 8.8 mg/dL (8.4-10.2) 01/19/21 05:42 Total Bilirubin 0.90 mg/dL (0.1-1.2) 01/17/21 14:43 AST 35 units/L (5-40) 01/17/21 14:43 ALT 51 units/L (7-56) 01/17/21 14:43 Alkaline Phosphatase 59 units/L (35-129) 01/17/21 14:43 Troponin T 0.014 ng/mL (0.00-0.029) 01/18/21 06:27 Total Protein 8.5 g/dL (6.3-8.2) H 01/17/21 14:43 Albumin 4.3 g/dL (3.9-5) 01/17/21 14:43 Albumin/Globulin Ratio 1.0 % 01/17/21 14:43 Urine Color Shara (Yellow) 01/17/21 Unknown Urine Turbidity Cloudy (Clear) 01/17/21 Unknown Urine pH 5.0 (5.0-7.0) 01/17/21 Unknown Ur Specific Abbott 1.020 (1.003-1.030) 01/17/21 Unknown Urine Protein 30 mg/dl mg/dL (Negative) 01/17/21 Unknown Urine Glucose (UA) Neg mg/dL (Negative) 01/17/21 Unknown Urine Ketones Neg mg/dL (Negative) 01/17/21 Unknown Urine Blood Neg (Negative) 01/17/21 Unknown Urine Nitrite Neg (Negative) 01/17/21 Unknown Urine Bilirubin Sm (Negative) 01/17/21 Unknown Urine Ictotest Negative (Negative) 01/17/21 Unknown Urine Urobilinogen 2.0 mg/dL (<2.0) 01/17/21 Unknown Ur Leukocyte Esterase Mod (Negative) 01/17/21 Unknown Urine WBC (Auto) 19.0 /HPF (0.0-6.0) H 01/17/21 Unknown Urine RBC (Auto) 5.0 /HPF (0.0-6.0) 01/17/21 Unknown U Epithel Cells (Auto) 22.0 /HPF (0-13.0) H 01/17/21 Unknown Urine Bacteria (Auto) 1+ /HPF (Negative) 01/17/21 Unknown Urine Mucus Few /HPF 01/17/21 Unknown Urine Yeast (Budding) Few /HPF 01/17/21 Unknown Coronavirus (PCR) Negative (Negative) 01/17/21 08:40 Microbiology: Microbiology 01/17/21 Unknown Urine,Clean Catch Urine Culture - Preliminary NO GROWTH AFTER 24 HOURS 01/17/21 23:47 Peripheral/Venous Blood Culture - Preliminary NO GROWTH AFTER 24 HOURS 01/18/21 00:34 Peripheral/Venous Blood Culture - Preliminary NO GROWTH AFTER 24 HOURS Morrison/IV: Voiding Method External Female Catheter Active Medications - Current Medications Current Medications: Generic Name Dose Route Start Last Admin Trade Name Freq PRN Reason Stop Dose Admin Acetaminophen 650 mg 01/17/21 23:12 Acetaminophen 650 Mg Rect Supp ME Q4H PRN Pain MILD(1-3)/Fever >100.5/NATION Heparin Sodium (Porcine) 5,000 unit 01/18/21 10:00 01/19/21 09:42 Heparin 5,000 Unit/1 Ml Vial SUB-Q 5,000 unit Q12HR ORI Administration Piperacillin Sod/Tazobactam Sod 4.5 gm in 100 mls @ 200 mls/hr 01/18/21 20:00 01/19/21 11:13 Zosyn/Ns 4.5gm/100ml IV 200 mls/hr Q8H ORI Administration Protocol Dextrose/Sodium Chloride 1,000 mls @ 75 mls/hr 01/18/21 18:00 01/19/21 09:43 D5ns IV 75 mls/hr DIRECT ORI Administration Potassium Chloride 10 meq in 100 mls @ 100 mls/hr 01/19/21 15:00 Kcl 10meq/100ml IV 01/19/21 18:59 Q1H ORI Morphine Sulfate 2 mg 01/17/21 23:12 Morphine 2 Mg/1 Ml Inj IV Q4H PRN Pain, Moderate (4-6) Morphine Sulfate 4 mg 01/17/21 23:12 Morphine 4 Mg/1 Ml Inj IV Q4H PRN Pain , Severe (7-10) Naloxone HCl 0.1 mg 01/17/21 23:12 Naloxone 0.4 Mg/1 Ml Inj IV Q2MIN PRN Res Rate </= 8 or 02 SAT < 92% Ondansetron HCl 4 mg 01/17/21 23:12 Ondansetron 4 Mg/2 Ml Inj IV Q6H PRN Nausea And Vomiting Pantoprazole Sodium 40 mg 01/18/21 10:00 01/19/21 09:42 Pantoprazole 40 Mg Inj IV 40 mg QDAY ORI Administration Sodium Chloride 10 ml 01/18/21 10:00 01/19/21 11:08 Sodium Chloride 0.9% 10 Ml Flush Syringe IV 10 ml BID ORI Administration Sodium Chloride 10 ml 01/17/21 23:12 Sodium Chloride 0.9% 10 Ml Flush Syringe IV PRN PRN LINE FLUSH
--- NOTE | 2021-01-19 14:34 | Progress Note ---
Assessment and Plan 70-year-old female with uncomplicated small bowel obstruction. Etiology unclear as she has not had previous surgeries, there is no incarcerated hernia, and no obvious mass seen on CT scan. Patient has remained afebrile and stable, and sh owing some clinical improvement with low to moderate NG tube output and passing flatus. -We will get abdominal x-ray in a.m. to evaluate progress. -Continue n.p.o. and NG tube to suction. Subjective Date of service: 01/19/21 Narrative: Patient says she is feeling better today compared to yesterday. She says her abdomen does not feel normal yet but she has passed flatus and denied having a bowel movement. She denies any nausea vomiting. Patient says she does not wish to have surgery I would like to continue NG tube decompression but feels as though she is ready to go home. Objective Vital Signs - 12hr 01/19/21 01/19/21 01/19/21 06:04 11:10 12:00 Temperature 98.9 F 98.0 F Pulse Rate 79 65 Respiratory 20 18 Rate Blood Pressure 103/41 110/44 O2 Sat by Pulse 94 95 99 Oximetry - General physical appearance well developed, no distress, no pain - Respiratory normal expansion, normal respiratory effort - Abdomen soft, not tender, distended, not guarding - Neurologic normal coordination - Psychiatric oriented to time, oriented to person, oriented to place - Labs 01/19/21 05:42 01/19/21 05:42 Diabetes panel 01/19/21 Range/Units 05:42 Sodium 146 H D (137-145) mmol/L Potassium 3.2 L (3.6-5.0) mmol/L Chloride 110.9 H (98-107) mmol/L Carbon Dioxide 23 (22-30) mmol/L BUN 54 H (7-17) mg/dL Creatinine 1.2 (0.6-1.2) mg/dL Glucose 119 H (65-100) mg/dL Calcium 8.8 (8.4-10.2) mg/dL Calcium panel 01/19/21 Range/Units 05:42 Calcium 8.8 (8.4-10.2) mg/dL Pituitary panel 01/19/21 Range/Units 05:42 Sodium 146 H D (137-145) mmol/L Potassium 3.2 L (3.6-5.0) mmol/L Chloride 110.9 H (98-107) mmol/L Carbon Dioxide 23 (22-30) mmol/L BUN 54 H (7-17) mg/dL Creatinine 1.2 (0.6-1.2) mg/dL Glucose 119 H (65-100) mg/dL Calcium 8.8 (8.4-10.2) mg/dL Adrenal panel 01/19/21 Range/Units 05:42 Sodium 146 H D (137-145) mmol/L Potassium 3.2 L (3.6-5.0) mmol/L Chloride 110.9 H (98-107) mmol/L Carbon Dioxide 23 (22-30) mmol/L BUN 54 H (7-17) mg/dL Creatinine 1.2 (0.6-1.2) mg/dL Glucose 119 H (65-100) mg/dL Calcium 8.8 (8.4-10.2) mg/dL
[2021-01-19] MEDS: POTASSIUM CHLORIDE 10 MEQ 10 MEQ/100 ML BAG IV SCH ×2 (16:58→18:42)
[2021-01-20] MEDS: D5W/0.9% NACL 1,000 ML IV SCH (01:30)
[2021-01-20] MEDS: PIPERACIL/TAZOBACTA 4.5/NS 100 4.5 GM/100 ML VIAL IV SCH ×3 (03:52→21:23)
[2021-01-20 04:55] LABS: Hematocrit 28.3 % (30.3-42.9); Hemoglobin 9.6 gm/dl (10.1-14.3); Mean Corpuscular HGB Conc 34 % (30-34); Mean Corpuscular Volume 103 fl (79-97); Platelet Count 150 K/mm3 (140-440); Red Blood Count 2.74 M/mm3 (3.65-5.03); Red Cell Distribution Width 12.2 % (13.2-15.2)
[2021-01-20 05:14] LABS: BUN/Creatinine Ratio 37; Blood Urea Nitrogen 33 mg/dL (7-17); Calcium 8.8 mg/dL (8.4-10.2); Hemolysis Index 7
[2021-01-20] MEDS: DEXTROSE 5% IN WATER 1,000 ML IV SCH (06:33)
--- NOTE | 2021-01-20 08:25 | Progress Note ---
Assessment and Plan 70 yo F with SBO Pt stable. Afebrile. WBC normal. Plan: 1. Obs series pending 2. IVF 3. prn pain and nausea control 4. Will consider trial of CLD today 5. Monitor electrolytes and replace as needed 6. Patient not agreeable to surgical intervention for SBO at this time. NO obvious etiology as she has not had prior abdominal surgery, no hernia seen on imaging/exam. It has been discussed with her that if she does not improve, will need to reconsider surgery for diagnostic and therapeutic purposes. Continue to monitor clinical progress. Dr. Marti to cover this weekend. Thank you, please call with questions. Subjective Date of service: 01/20/21 Narrative: Pt seen and examined. c/o mild epigastric abdominal pain. No n/v. NGT was noted to be dislodged yesterday afternoon and patient refused replacement. Output was minimal and gastric in nature. She is passing some flatus. No BM yet. Denies n/v. Afebrile. Objective Vital Signs - 12hr 01/19/21 01/19/21 01/20/21 20:30 22:30 04:06 Temperature 97.8 F 99.1 F Pulse Rate 68 60 Respiratory 18 18 Rate Blood Pressure 118/46 111/48 O2 Sat by Pulse 92 92 97 Oximetry - General physical appearance Narrative Exam: Gen: AAOx3. NAD CV: s1, S2+ Resp; even and unlabored Abd: soft, NT, ND Ext: no c/c/e - Labs 01/20/21 03:40 01/20/21 03:40 Diabetes panel 01/20/21 Range/Units 03:40 Sodium 149 H (137-145) mmol/L Potassium 3.4 L (3.6-5.0) mmol/L Chloride 115.7 H (98-107) mmol/L Carbon Dioxide 26 (22-30) mmol/L BUN 33 H (7-17) mg/dL Creatinine 0.9 (0.6-1.2) mg/dL Glucose 119 H (65-100) mg/dL Calcium 8.8 (8.4-10.2) mg/dL Calcium panel 01/20/21 Range/Units 03:40 Calcium 8.8 (8.4-10.2) mg/dL Pituitary panel 01/20/21 Range/Units 03:40 Sodium 149 H (137-145) mmol/L Potassium 3.4 L (3.6-5.0) mmol/L Chloride 115.7 H (98-107) mmol/L Carbon Dioxide 26 (22-30) mmol/L BUN 33 H (7-17) mg/dL Creatinine 0.9 (0.6-1.2) mg/dL Glucose 119 H (65-100) mg/dL Calcium 8.8 (8.4-10.2) mg/dL Adrenal panel 01/20/21 Range/Units 03:40 Sodium 149 H (137-145) mmol/L Potassium 3.4 L (3.6-5.0) mmol/L Chloride 115.7 H (98-107) mmol/L Carbon Dioxide 26 (22-30) mmol/L BUN 33 H (7-17) mg/dL Creatinine 0.9 (0.6-1.2) mg/dL Glucose 119 H (65-100) mg/dL Calcium 8.8 (8.4-10.2) mg/dL
[2021-01-20] MEDS: PANTOPRAZOLE 40 MG INJ IV SCH (09:27)
[2021-01-20] MEDS: HEPARIN 5,000 UNIT/1 ML VIAL SUB-Q SCH ×2 (09:27→21:23)
--- NOTE | 2021-01-20 11:36 | Progress Note ---
Assessment and Plan Assessment and plan: 70-year-old female with history of hypertension who presents [facility] ED via ambulance with complaints of chest pain. Patient reports intermittent chest pain when coughing x1 week. Denies chest pain when not coughing. Describes her cough as dry and nonproductive. Describes her chest pain as aching and rates it 4/10. While in the ED being worked up for chest pain patient began to complain of 8/10 sharp epigastric pain with radiation to upper and lower abdomen and was noted to be hypotensive with BP of 80/42. Her abdominal pain came on sudden and was relieved with pain meds. Despite receiving 1 L bolus of normal saline, patient remained hypotensive, and was started on maintenance fluids. Imaging revealed small bowel obstruction and pneumonia. Patient will be admitted for further evaluation and treatment. CT abdomen and pelvis 1. Small bowel obstruction with likely transition point in the lower mid abdomen as above. No pneumatosis or free air identified. 2. Mild patchy airspace disease in the right middle lobe is nonspecific, possibly infectious/inflammatory from aspiration-related changes from dilated fluid-filled esophagus. Small bowel obstruction -CT abdomen pelvis revealed small bowel obstruction with likely transition point in the lower mid abdomen -N.p.o. -NG tube to LIS -On IV ABX -Dr. Richard (general surgery) consulted with plans to see in a.m. Acute abdominal pain -Complains of sharp 8/10 epigastric pain -Likely due to #1 -Pain management -Supportive care Atypical chest pain -Complains of substernal chest pain when coughing -EKG negative for acute ischemic abnormalities -Troponin negative x2, will trend -?? GERD -?? d/t PNA -On continuous remote telemetry monitoring CHRIST -BUN/Cr on 67/1.8 on admission -Hydrate with IVF -Avoid nephrotoxic agents -Renal dose all meds -Monitor renal function Urinary tract infection -UA positive for UTI -urine wbc 19, moderate leukocyte -Urine culture pending -on IV Abx Pneumonia -CXR negative -CT chest shows nonspecific Mild patchy airspace disease in the right middle lobe -Blood Cultures pending -Start on IV Abx Lactic acidosis -Lactic acid of 3.5 on admission -on IV Abx -on IVF -Continue to monitor Hypotension - History of hypertension -Responsive to fluid resuscitation -We will hold off on antihypertensive for now, resume when appropriate -Monitor BP DVT and GI PPX - On protonix and heparin Advance Directives: No VTE prophylaxis?: Chemical, Mechanical Plan of care discussed with patient/family: Yes 01/18: Continue supportive care. Surgery evaluating, continue NGT, Will have Cardiology evaluate as patient had chest pain prior to presentation. She reports that she has a hx of Regular BM, although that she has experienced constipation about 3 months earlier. 01/19: Patient refused surgery yesterday, stated also no prior hx of surgery. Will continue conservative care, encourage ambulation intermittent today, Will obtain KUB tomorrow for further evaluation. CALLED AND UPDATED FAMILY GILBERTO 01/20: Patient pulled out NGT yesterday and refused replacing it. Awaiting KUB, may consider CLD per Surgeon. Continue current care. History Interval history: Patient seen and examined, resting comfortable. Hospitalist Physical - Physical exam Narrative exam: VITAL SIGNS: Reviewed. GENERAL: The patient appears normally developed, Vital signs as documented. HEAD: No signs of head trauma. EYES: Pupils are equal. Extraocular motions intact. EARS: Hearing grossly intact. MOUTH: Oropharynx is normal. NECK: No adenopathy, no JVD. CHEST: Chest with clear breath sounds bilaterally. No wheezes, rales, or rhonchi. CARDIAC: Regular rate and rhythm. S1 and S2, without murmurs, gallops, or rubs. VASCULAR: No Edema. Peripheral pulses normal and equal in all extremities. ABDOMEN: Soft, non tender and non distended. No rebound or guarding, and no masses palpated. Bowel Sounds normal. MUSCULOSKELETAL: Good range of motion of all major joints. Extremities without clubbing, cyanosis or edema. NEUROLOGIC EXAM: Alert and oriented x 3 No focal sensory or strength deficits. Speech normal. Follows commands. PSYCHIATRIC: Mood normal. SKIN: detail exam as documented in skin assessment - Constitutional Vitals: Temp Pulse Resp BP Pulse Ox 99.0 F 63 18 166/54 98 01/20/21 11:03 01/20/21 11:03 01/20/21 11:03 01/20/21 11:03 01/20/21 11:03 General appearance: Present: no acute distress HEART Score - HEART Score Troponin: Troponin T 0.014 ng/mL (0.00-0.029) 01/18/21 06:27 Results - Labs CBC & Chem 7: 01/20/21 03:40 01/20/21 03:40 Labs: Laboratory Last Values WBC 6.6 K/mm3 (4.5-11.0) 01/20/21 03:40 RBC 2.74 M/mm3 (3.65-5.03) L 01/20/21 03:40 Hgb 9.6 gm/dl (10.1-14.3) L 01/20/21 03:40 Hct 28.3 % (30.3-42.9) L 01/20/21 03:40 MCV 103 fl (79-97) H 01/20/21 03:40 MCH 35 pg (28-32) H 01/20/21 03:40 MCHC 34 % (30-34) 01/20/21 03:40 RDW 12.2 % (13.2-15.2) L 01/20/21 03:40 Plt Count 150 K/mm3 (140-440) 01/20/21 03:40 Sodium 149 mmol/L (137-145) H 01/20/21 03:40 Potassium 3.4 mmol/L (3.6-5.0) L 01/20/21 03:40 Chloride 115.7 mmol/L (98-107) H 01/20/21 03:40 Carbon Dioxide 26 mmol/L (22-30) 01/20/21 03:40 Anion Gap 11 mmol/L 01/20/21 03:40 BUN 33 mg/dL (7-17) H 01/20/21 03:40 Creatinine 0.9 mg/dL (0.6-1.2) 01/20/21 03:40 Estimated GFR > 60 ml/min 01/20/21 03:40 BUN/Creatinine Ratio 37 % 01/20/21 03:40 Glucose 119 mg/dL (65-100) H 01/20/21 03:40 Lactic Acid 1.80 mmol/L (0.7-2.0) 01/18/21 06:27 Calcium 8.8 mg/dL (8.4-10.2) 01/20/21 03:40 Magnesium 2.10 mg/dL (1.7-2.3) 01/20/21 03:40 Total Bilirubin 0.90 mg/dL (0.1-1.2) 01/17/21 14:43 AST 35 units/L (5-40) 01/17/21 14:43 ALT 51 units/L (7-56) 01/17/21 14:43 Alkaline Phosphatase 59 units/L (35-129) 01/17/21 14:43 Troponin T 0.014 ng/mL (0.00-0.029) 01/18/21 06:27 Total Protein 8.5 g/dL (6.3-8.2) H 01/17/21 14:43 Albumin 4.3 g/dL (3.9-5) 01/17/21 14:43 Albumin/Globulin Ratio 1.0 % 01/17/21 14:43 Urine Color Shara (Yellow) 01/17/21 Unknown Urine Turbidity Cloudy (Clear) 01/17/21 Unknown Urine pH 5.0 (5.0-7.0) 01/17/21 Unknown Ur Specific [place] 1.020 (1.003-1.030) 01/17/21 Unknown Urine Protein 30 mg/dl mg/dL (Negative) 01/17/21 Unknown Urine Glucose (UA) Neg mg/dL (Negative) 01/17/21 Unknown Urine Ketones Neg mg/dL (Negative) 01/17/21 Unknown Urine Blood Neg (Negative) 01/17/21 Unknown Urine Nitrite Neg (Negative) 01/17/21 Unknown Urine Bilirubin Sm (Negative) 01/17/21 Unknown Urine Ictotest Negative (Negative) 01/17/21 Unknown Urine Urobilinogen 2.0 mg/dL (<2.0) 01/17/21 Unknown Ur Leukocyte Esterase Mod (Negative) 01/17/21 Unknown Urine WBC (Auto) 19.0 /HPF (0.0-6.0) H 01/17/21 Unknown Urine RBC (Auto) 5.0 /HPF (0.0-6.0) 01/17/21 Unknown U Epithel Cells (Auto) 22.0 /HPF (0-13.0) H 01/17/21 Unknown Urine Bacteria (Auto) 1+ /HPF (Negative) 01/17/21 Unknown Urine Mucus Few /HPF 01/17/21 Unknown Urine Yeast (Budding) Few /HPF 01/17/21 Unknown Coronavirus (PCR) Negative (Negative) 01/17/21 08:40 Microbiology: Microbiology 01/17/21 23:47 Peripheral/Venous Blood Culture - Preliminary NO GROWTH AFTER 48 HOURS 01/18/21 00:34 Peripheral/Venous Blood Culture - Preliminary NO GROWTH AFTER 48 HOURS 01/17/21 Unknown Urine,Clean Catch Urine Culture - Preliminary NO GROWTH AFTER 24 HOURS Morrison/IV: Voiding Method Toilet Active Medications - Current Medications Current Medications: Generic Name Dose Route Start Last Admin Trade Name Freq PRN Reason Stop Dose Admin Acetaminophen 650 mg 01/17/21 23:12 Acetaminophen 650 Mg Rect Supp UT Q4H PRN Pain MILD(1-3)/Fever >100.5/NATION Heparin Sodium (Porcine) 5,000 unit 01/18/21 10:00 01/20/21 09:27 Heparin 5,000 Unit/1 Ml Vial SUB-Q 5,000 unit Q12HR ORI Administration Piperacillin Sod/Tazobactam Sod 4.5 gm in 100 mls @ 200 mls/hr 01/18/21 20:00 01/20/21 03:52 Zosyn/Ns 4.5gm/100ml IV 200 mls/hr Q8H ORI Administration Protocol Dextrose 1,000 mls @ 75 mls/hr 01/20/21 06:07 01/20/21 06:33 D5w IV 75 mls/hr DIRECT ORI Administration Morphine Sulfate 2 mg 01/17/21 23:12 Morphine 2 Mg/1 Ml Inj IV Q4H PRN Pain, Moderate (4-6) Morphine Sulfate 4 mg 01/17/21 23:12 Morphine 4 Mg/1 Ml Inj IV Q4H PRN Pain , Severe (7-10) Naloxone HCl 0.1 mg 01/17/21 23:12 Naloxone 0.4 Mg/1 Ml Inj IV Q2MIN PRN Res Rate </= 8 or 02 SAT < 92% Ondansetron HCl 4 mg 01/17/21 23:12 Ondansetron 4 Mg/2 Ml Inj IV Q6H PRN Nausea And Vomiting Pantoprazole Sodium 40 mg 01/18/21 10:00 01/20/21 09:27 Pantoprazole 40 Mg Inj IV 40 mg QDAY ORI Administration Sodium Chloride 10 ml 01/18/21 10:00 01/20/21 09:28 Sodium Chloride 0.9% 10 Ml Flush Syringe IV 10 ml BID ORI Administration Sodium Chloride 10 ml 01/17/21 23:12 Sodium Chloride 0.9% 10 Ml Flush Syringe IV PRN PRN LINE FLUSH
--- NOTE | 2021-01-20 12:11 | Progress Note ---
Assessment and Plan Atypical chest pain associated with cough COVID serology result is pending 2018 Lexiscan: normal perfusion 2018 Echo: normal LVEF 55-60% Small bowel obstruction pt declined surgical intervention Hypertension Conservative cardiac management. Subjective Date of service: 01/20/21 Interval history: No cardiac complaints. Objective Vital Signs Temp Pulse Resp BP Pulse Ox 01/20/21 11:03 99.0 F 63 18 166/54 98 01/20/21 04:06 99.1 F 60 18 111/48 97 01/19/21 22:30 97.8 F 68 18 118/46 92 01/19/21 20:30 92 01/19/21 16:31 98.7 F 61 18 114/35 93 - Physical Examination General: No Apparent Distress HEENT: Positive: PERRL Neck: Positive: neck supple Cardiac: Positive: Reg Rate and Rhythm Lungs: Positive: Decreased Breath Sounds Neuro: Positive: Grossly Intact Abdomen: Positive: Tender Extremities: Absent: edema - Labs and Meds CBC 01/20/21 Range/Units 03:40 WBC 6.6 (4.5-11.0) K/mm3 RBC 2.74 L (3.65-5.03) M/mm3 Hgb 9.6 L (10.1-14.3) gm/dl Hct 28.3 L (30.3-42.9) % Plt Count 150 (140-440) K/mm3 Comprehensive Metabolic Panel 01/20/21 Range/Units 03:40 Sodium 149 H (137-145) mmol/L Potassium 3.4 L (3.6-5.0) mmol/L Chloride 115.7 H (98-107) mmol/L Carbon Dioxide 26 (22-30) mmol/L BUN 33 H (7-17) mg/dL Creatinine 0.9 (0.6-1.2) mg/dL Glucose 119 H (65-100) mg/dL Calcium 8.8 (8.4-10.2) mg/dL
--- NOTE | 2021-01-20 13:19 | Electrocardiograph Report ---
[facility] Test Date: 2021-01-17 Test Time: 14:08:06 Pat Name: DANIELA WHALEN Department: 3 [facility] Room: A392 Gender: F Registered Mail Clerk: PHILLIP : 1950 Requested By: JAZMIN THORNTON Order Number: [id number] Reading MD: Juwan Simmons Measurements Intervals Anderson Rate: 88 P: -72 WV: 164 QRS: 50 QRSD: 76 T: 251 QT: 537 QTc: 651 Interpretive Statements Normal sinus rhythm Consider old anteroseptal infarct Left ventricular hypertrophy with repolarization abnormality Consider inferolateral ischemia Prolonged QT interval No previous ECG available for comparison Electronically Signed On 01-20-2021 13:19:24 EDT by Juwan Simmons
--- NOTE | 2021-01-20 13:56 | XRay Report ---
ABDOMEN 1 VIEW 01/20/2021 INDICATION / CLINICAL INFORMATION: f/u sbo. COMPARISON: 01/17/2021 FINDINGS: TUBES / LINES: None. BOWEL GAS PATTERN: Previous seen prominent loops of bowel have resolved. FREE AIR / EXTRALUMINAL GAS: None seen. ADDITIONAL FINDINGS: Multiple degenerated fibroids IMPRESSION: 1. Resolution of previously seen dilated loops of bowel Signer Name: Eldon Osman DO Signed: 01/20/2021 1:52 PM Workstation Name: [id number]
[2021-01-21] MEDS: DEXTROSE 5% IN WATER 1,000 ML IV SCH (02:36)
[2021-01-21] MEDS: PIPERACIL/TAZOBACTA 4.5/NS 100 4.5 GM/100 ML VIAL IV SCH (03:19)
--- NOTE | 2021-01-21 10:04 | Discharge Summary ---
Providers - Providers Date of Admission: 01/17/21 23:12 Attending physician: LM ISSA MD 01/17/21 23:09 Consult to Physician [CONS] Stat Comment: Dr. Givens spoke with Dr. Richard @ [id number] Consulting Provider: BRI RICHARD Physician Instructions: Reason For Exam: Small bowel obstruction 01/18/21 08:29 Consult to Physician [CONS] Routine Comment: Consulting Provider: SUSANNA COBB Physician Instructions: Reason For Exam: CHEST PAIN Primary care physician: SHANKER OUT Hospitalization Reason for admission: Small bowel obstruction Condition: Stable Hospital course: 70-year-old female with history of hypertension who presents [facility] ED via ambulance with complaints of chest pain. Patient reports intermittent chest pain when coughing x1 week. Denies chest pain when not coughing. Describes her cough as dry and nonproductive. Describes her chest pain as aching and rates it 4/10. While in the ED being worked up for chest pain patient began to complain of 8/10 sharp epigastric pain with radiation to upper and lower abdomen and was noted to be hypotensive with BP of 80/42. Her abdominal pain came on sudden and was relieved with pain meds. Despite receiving 1 L bolus of normal saline, patient remained hypotensive, and was started on maintenance fluids. Imaging revealed small bowel obstruction and pneumonia. Patient will be admitted for further evaluation and treatment. CT abdomen and pelvis 1. Small bowel obstruction with likely transition point in the lower mid abdomen as above. No pneumatosis or free air identified. 2. Mild patchy airspace disease in the right middle lobe is nonspecific, possibly infectious/inflammatory from aspiration-related changes from dilated fluid-filled esophagus. Small bowel obstruction -CT abdomen pelvis revealed small bowel obstruction with likely transition point in the lower mid abdomen -N.p.o. -NG tube to LIS -On IV ABX -Dr. Richard (general surgery) consulted with plans to see in a.m. Acute abdominal pain -Complains of sharp 8/10 epigastric pain -Likely due to #1 -Pain management -Supportive care Atypical chest pain -Complains of substernal chest pain when coughing -EKG negative for acute ischemic abnormalities -Troponin negative x2, will trend -?? GERD -?? d/t PNA -On continuous remote telemetry monitoring CHRIST -BUN/Cr on 67/1.8 on admission -Hydrate with IVF -Avoid nephrotoxic agents -Renal dose all meds -Monitor renal function Urinary tract infection -UA positive for UTI -urine wbc 19, moderate leukocyte -Urine culture pending -on IV Abx Pneumonia -CXR negative -CT chest shows nonspecific Mild patchy airspace disease in the right middle lobe -Blood Cultures pending -Start on IV Abx Lactic acidosis -Lactic acid of 3.5 on admission -on IV Abx -on IVF -Continue to monitor Hypotension - History of hypertension -Responsive to fluid resuscitation -We will hold off on antihypertensive for now, resume when appropriate -Monitor BP DVT and GI PPX - On protonix and heparin Advance Directives: No VTE prophylaxis?: Chemical, Mechanical Plan of care discussed with patient/family: Yes 01/18: Continue supportive care. Surgery evaluating, continue NGT, Will have Cardiology evaluate as patient had chest pain prior to presentation. She reports that she has a hx of Regular BM, although that she has experienced constipation about 3 months earlier. 01/19: Patient refused surgery yesterday, stated also no prior hx of surgery. Will continue conservative care, encourage ambulation intermittent today, Will obtain KUB tomorrow for further evaluation. CALLED AND UPDATED FAMILY GILBERTO 01/20: Patient pulled out NGT yesterday and refused replacing it. Awaiting KUB, may consider CLD per Surgeon. Continue current care. 01/21: Patient started on diet yesterday clear liquid diet after KUB showed resolution of previously noted dilated loops of the bowel. Patient is insistent today that she needs to be discharged. She is not going to stay here she wants to leave. Advised that I would like to see her have a bowel movement despite resolution being seen on KUB. She states that she has not vomited she has tolerated her clear liquid diet nevertheless my recommendation still stands but the patient will be discharged based on her recommendation and request. Disposition: HOME / SELF CARE / HOMELESS Final Discharge Diagnosis (Prints w/discharge instructions): Small bowel obstruction Time spent for discharge: 35-minute Core Measure Documentation - Palliative Care Palliative Care/ Comfort Measures: Not Applicable - Core Measures Any of the following diagnoses?: none Exam - Physical Exam Narrative exam: VITAL SIGNS: Reviewed. GENERAL: The patient appears normally developed, Vital signs as documented. HEAD: No signs of head trauma. EYES: Pupils are equal. Extraocular motions intact. EARS: Hearing grossly intact. MOUTH: Oropharynx is normal. NECK: No adenopathy, no JVD. CHEST: Chest with clear breath sounds bilaterally. No wheezes, rales, or rhonchi. CARDIAC: Regular rate and rhythm. S1 and S2, without murmurs, gallops, or rubs. VASCULAR: No Edema. Peripheral pulses normal and equal in all extremities. ABDOMEN: Soft, non tender and non distended. No rebound or guarding, and no masses palpated. Bowel Sounds normal. MUSCULOSKELETAL: Good range of motion of all major joints. Extremities without clubbing, cyanosis or edema. NEUROLOGIC EXAM: Alert and oriented x 3 No focal sensory or strength deficits. Speech normal. Follows commands. PSYCHIATRIC: Mood normal. SKIN: detail exam as documented in skin assessment - Constitutional Vitals: Temp Pulse Resp BP Pulse Ox 99.4 F 60 19 145/49 98 01/21/21 05:24 01/21/21 05:24 01/21/21 05:24 01/21/21 05:24 01/21/21 05:24 Plan Activity: advance as tolerated, fall precautions Diet: low fat, clear liquids (Advance as tolerated in the next 3 to), other Wound: per your surgeon's advice Special Instructions: record daily weights, record daily BP diary Plan of Treatment: Return to the hospital if nausea with vomiting or prolonged. If no bowel movement Follow up with: PRIMARY CAREMD [Primary Care Provider] - 3-5 Days SUSANNA COBB MD [Staff Physician] - 7 Days FIDEL DALLAS DO [Staff Physician] - 7 Days Prescriptions: Docusate Sodium [Colace] 100 mg PO DAILY #30 capsule Benzonatate [Tessalon Perles] 100 mg PO Q8HR #30 capsule
[2021-01-21] MEDS ORDERED: LACTULOSE 20 GM/30 ML ORAL LIQD PO ONE (10:30)
[2021-01-21] MEDS: HEPARIN 5,000 UNIT/1 ML VIAL SUB-Q SCH (11:08)
[2021-01-21] MEDS: PANTOPRAZOLE 40 MG INJ IV SCH (11:08)
[2021-01-21 11:59] VITALS: BP 125/56
== END 2021-01-21 15:30 | disposition home or self-care (01) | DRG 388 ==
LOC: ED 13:55 → 3A 23:12
PROVIDERS: ADMIT Internal Medicine Geriatric Medicine; ATTEND Internal Medicine
PROC: 0D9670Z Drainage of Stomach with Drainage Device, Via Natural or Artificial Opening (ICD-10-PCS; principal; 2021-01-18)
DX: K56.609 Unspecified intestinal obstruction, unspecified as to partial versus complete obstruction (principal); J18.9 Pneumonia, unspecified organism; N17.0 Acute kidney failure with tubular necrosis; N39.0 Urinary tract infection, site not specified; E87.2 Acidosis; Z20.822 Contact with and (suspected) exposure to COVID-19; I10 Essential (primary) hypertension; Z86.79 Personal history of other diseases of the circulatory system; I95.9 Hypotension, unspecified
CPT/HCPCS: 36415; 71046; 71250; 74018; 74176; 80048; 80053; 81001; 82140; 83735; 84484; 85027; 87040; 87086; 93005; G0378; C9113; J1644; J2543; J3480; J7030; J7042; J7070; U0003